=== PATIENT | female | born 1985 | race Caucasian/White ===

== ENCOUNTER 2020-08-22 09:05 | Emergency (ER) | payer MEDICAID ==
[~2020-08-22] VITALS: Ht 149.9 cm; Wt 99.8 kg
[2020-08-22] MEDS ORDERED: METFORMIN HCL500 M3 PO (09:19)
[2020-08-22] MEDS ORDERED: ZESTRIL40 MG PO (09:19)
[2020-08-22] MEDS ORDERED: LANTUS SUBQ (09:19)
[2020-08-22] MEDS ORDERED: PLAVIX 75 MG TA75 MG PO (09:19)
[2020-08-22] MEDS ORDERED: LIPITOR40 MG PO (09:19)
[2020-08-22] MEDS ORDERED: HUMALOG100 UNIT/1 SUBQ (09:19)
[2020-08-22] MEDS ORDERED: KEFLEX500 M2 PO (10:35)
[2020-08-22] MEDS ORDERED: ULTRAM 50MG TAB50 MG PO (10:35)
[2020-08-22 10:57] VITALS: BP 135/77
== END 2020-08-22 10:58 | disposition home or self-care (01) ==
LOC: M.ERS 09:05
DX: L02.415 Cutaneous abscess of right lower limb (principal); I10 Essential (primary) hypertension; E03.9 Hypothyroidism, unspecified; E78.00 Pure hypercholesterolemia, unspecified; I25.2 Old myocardial infarction; E11.9 Type 2 diabetes mellitus without complications; Z98.890 Other specified postprocedural states; Z95.5 Presence of coronary angioplasty implant and graft; Z79.899 Other long term (current) drug therapy; Z79.4 Long term (current) use of insulin; Z88.1 Allergy status to other antibiotic agents